=== PATIENT | female | born 1965 | race Caucasian/White ===

== ENCOUNTER 2016-10-04 11:17 | Emergency (ER) | payer MEDICARE, MEDICAID ==
[~2016-10-04] VITALS: Ht 160 cm; Wt 122.0 kg
[2016-10-04] MEDS ORDERED: ACETAMINOPHEN 325MG TABLET PO ONE (14:15)
[2016-10-06 14:32] VITALS: BP 135/80
== END 2016-10-06 16:16 | disposition home or self-care (01) ==
LOC: ER 11:30
DX: M25.561 Pain in right knee (principal); M25.579 Pain in unspecified ankle and joints of unspecified foot; I10 Essential (primary) hypertension; E11.9 Type 2 diabetes mellitus without complications; R56.9 Unspecified convulsions; I50.9 Heart failure, unspecified; F17.200 Nicotine dependence, unspecified, uncomplicated; Z59.0 Homelessness; Z99.3 Dependence on wheelchair
CPT/HCPCS: 73562; 73590; 73630; 99284